=== PATIENT | female | born 1990 | race Hispanic/Latino ===

== ENCOUNTER 2021-07-19 19:14 | Emergency (ER) | payer OTHER ==
[~2021-07-19] VITALS: Ht 160 cm; Wt 77.1 kg
[2021-07-19] MEDS ORDERED: KETOROLAC TROMETHAMINE 30 MG/ML VIAL IM STA (19:46)
[2021-07-19] MEDS ORDERED: CYCLOBENZAPRINE HCL 10 MG TAB PO ONE (20:00)
[2021-07-19] MEDS ORDERED: CYCLOBENZAPRINE HCL 10 MG TAB ONE (20:09)
[2021-07-19] MEDS ORDERED: KETOROLAC TROMETHAMINE 60 MG/2 ML VIAL ONE (20:09)
[2021-07-19] MEDS ORDERED: NAPROSYN500 MG PO (20:39)
[2021-07-19] MEDS ORDERED: CYCLOBENZAPRINE5 MG PO (20:39)
== END 2021-07-19 21:40 | disposition home or self-care (01) ==
LOC: FSED 19:18
DX: M54.5 Low back pain (principal); X50.1XXA Overexertion from prolonged static or awkward postures, initial encounter; Y92.512 Supermarket, store or market as the place of occurrence of the external cause; D64.9 Anemia, unspecified
CPT/HCPCS: 72100; 99283; J1885